=== PATIENT | male | born 1955 | race Caucasian/White ===

== ENCOUNTER 2019-03-25 15:40 | Emergency (ER) | payer MEDICAID, OTHER ==
[2019-03-25 15:58] VITALS: BP 130/66
[2019-03-25] MEDS ORDERED: oxyCODONE 5 MG TABLET PO STA (16:06)
--- NOTE | 2019-03-25 16:07 | ED Physician Documentation ---
PD HPI LOWER EXT INJURY - Stated complaint Stated Complaint: L ANKLE INJ - Chief complaint Chief Complaint: Ext Problem - History obtained from History obtained from: Patient - History of Present Illness PD HPI LOW EXT INJURY LOCATION: Left (Healthy 63-year-old gentleman fell a few feet onto dirt. Injured his left foot and ankle. He is unable to walk or bear weight. This happened around 2:00 today. No other injuries.) Review of Systems Constitutional: reports: Reviewed and negative Cardiac: reports: Reviewed and negative Respiratory: reports: Reviewed and negative PD PAST MEDICAL HISTORY - Present Medications Home Medications: Ambulatory Orders Medication Instructions Recorded Confirmed Knee Scooter 1 unit TD ONCE #1 03/25/19 Oxycodone HCl/Acetaminophen 1 - 2 each PO Q6H PRN #14 tablet 03/25/19 [Percocet 5-325 mg Tablet] - Allergies Allergies/Adverse Reactions: Allergies Allergy/AdvReac Type Severity Reaction Status Date / Time Penicillins Allergy Unknown Verified 03/25/19 15:58 PD ED PE NORMAL - Vitals Vital signs reviewed: Yes - General General: Alert and oriented X 3 - Neck Neck: Other (The totality of his cervical, lumbar, and thoracic spines were palpated without any tenderness.) - Extremities Extremities: Other (He is mildly tender over the calcaneus, more so over the lateral malleolus of the left ankle. No deformity. No other foot tenderness. No proximal fibular tenderness.) - Neuro Neuro: Alert and oriented X 3, Normal speech Results - Vitals Vitals: Vital Signs - 24 hr 03/25/19 15:51 Temperature 37 C Heart Rate 69 Respiratory 16 Rate Blood Pressure 130/66 O2 Saturation 98 Oxygen O2 Source Room air - Rads (name of study) L calcaneus and ankle XR Radiology: EMP read contemporaneously (Frx of the base of the calcaneal tuberosit with mild impaction.) Procedures - Splint (location) L leg Splint applied by: Physician Type of splint: Short leg, Other (bulky sorto) Other: Patient tolerated well, No complications, Neurovascular intact Departure - Departure Disposition: 01 Home, Self Care Clinical Impression: Left calcaneal fracture Condition: Good Record reviewed to determine appropriate education?: Yes Instructions: Calcaneus Fx Repair, ED Crutch Walking Follow-Up: [facility] [Provider Group] - Within 1 week Prescriptions: Knee Scooter 1 unit TD ONCE #1 Oxycodone HCl/Acetaminophen [Percocet 5-325 mg Tablet] 1 - 2 each PO Q6H PRN #14 tablet PRN Reason: pain Comments: Fortunately, the orthopedic surgeon does not feel like this particular fracture will need surgery. Do not remove the splint. Do not get it wet. Do not walk on it. Follow-up with the orthopedic clinic within the week, call them tomorrow for an appointment. Do not drink or drive with prescription pain medications. Discharge Date/Time: 03/25/19 17:02
--- NOTE | 2019-03-25 17:09 | XRAY Report ---
Reason: fall, LLE pain Procedure Date: 03/25/2019 Accession Number: [id number] / [id number] Procedure: XR - Ankle 3 View LT CPT Code: FULL RESULT: EXAM: LEFT ANKLE RADIOGRAPHY EXAM DATE: 03/25/2019 04:31 PM. CLINICAL HISTORY: Fall, LLE pain. COMPARISON: None. TECHNIQUE: 3 views. FINDINGS: Bones: Bohler' s angle is mildly decreased at 22 degrees. There is a transverse fracture through the mid to superior aspect of the calcaneus posterior to the posterior subtalar joint. No other fracture is identified. Medial and lateral malleoli are intact. Joints: Normal. No effusion. No subluxations. The ankle mortise is normally aligned. Soft Tissues: Mild soft tissue swelling over the heel fat pad. Mild soft tissue swelling over the anterior and lateral ankle. IMPRESSION: Minimally impacted transverse fracture through the base of the left calcaneal tuberosity. RADIA
--- NOTE | 2019-03-25 17:11 | XRAY Report ---
Reason: fall, LLE pain Procedure Date: 03/25/2019 Accession Number: [id number] / [id number] Procedure: XR - Calcaneus LT CPT Code: FULL RESULT: EXAM: LEFT CALCANEUS RADIOGRAPHY EXAM DATE: 03/25/2019 04:30 PM. CLINICAL HISTORY: Fall, LLE pain. COMPARISON: ANKLE 3 VIEW LT 03/25/2019 4:10 PM. TECHNIQUE: 2 views. FINDINGS: Bones: Bhler's angle is mildly decreased at about 23 degrees. There is a transverse fracture through the base of the calcaneal tuberosity just posterior to the posterior subtalar joint with mild impaction mid to superiorly. Joints: Normal. No subluxations. Soft Tissues: Normal. No soft tissue swelling. IMPRESSION: Fracture at the base of the left calcaneal tuberosity with mild impaction. RADIA
== END 2019-03-25 17:02 | disposition home or self-care (01) ==
LOC: ED 15:40
DX: S92.042A Displaced other fracture of tuberosity of left calcaneus, initial encounter for closed fracture (principal); W17.89XA Other fall from one level to another, initial encounter
CPT/HCPCS: 29515; 73610; 73650; 99283; 99284; A9270

== ENCOUNTER 2019-07-25 08:36 | Outpatient (CLI) | payer OTHER ==
--- NOTE | 2019-07-25 14:15 | Ultrasound Report ---
Reason: CHRONIC HEPATITIS Procedure Date: 07/25/2019 Accession Number: [id number] / [id number] Procedure: US - Abdomen Limited CPT Code: Final Report FULL RESULT: EXAM: ABDOMEN LIMITED EXAM DATE: 07/25/2019 09:13 AM INDICATION: Hepatitis C. COMPARISONS: NONE. TECHNIQUE: Real-time scanning was performed with static images obtained. FINDINGS: Liver: Liver parenchyma is heterogeneous and mildly hyperechoic. No cirrhosis. No discrete liver masses or intrahepatic bile duct dilation. However, evaluation for masses is limited secondary to the echogenicity. Right liver measures 15.9 cm. Main portal vein flow: Hepatopetal. Main portal vein measures 1.2 cm. Gallbladder: Probable sludge. No gallstones. Negative for sonographic Mcbride's sign. No gallbladder wall thickening or pericholecystic fluid. Biliary System: CBD measures 3 mm. No intrahepatic or extrahepatic ductal dilatation. Pancreas: Normal. Right kidney: 11.2 cm. No hydronephrosis. Abdominal aorta and IVC: Normal. Other: None. IMPRESSION: 1. No liver mass or intrahepatic dilation.No cirrhosis. Mildly echogenic liver with possible fatty infiltration. 2. Probable gallbladder sludge. No gallstones or sonographic findings concerning for acute cholecystitis. Normal common bile duct. 3. Normal pancreas. RADIA
== END 2019-07-25 08:37 | disposition home or self-care (01) ==
LOC: DI 08:36
PROVIDERS: ATTEND Nurse Practitioner Acute Care
DX: B19.20 Unspecified viral hepatitis C without hepatic coma (principal)
CPT/HCPCS: 76705

== ENCOUNTER 2020-10-22 08:10 | Outpatient (CLI) | payer OTHER ==
--- NOTE | 2020-10-22 10:10 | Ultrasound Report ---
PROCEDURE: Abdomen Limited INDICATIONS: Cirrhosis TECHNIQUE: Real-time focused scanning was performed of the abdomen, with image documentation. COMPARISON: 07/25/2019 12 abdominal ultrasound FINDINGS: Coarsened hepatic echotexture and increased hepatic parenchymal echogenicity, similar to t he prior study. There is subtle suggestion of possible contour nodularity. No focal hepatic mass or i ntrahepatic biliary ductal dilatation. Normal caliber common duct. The gallbladder and right kidney a re within normal limits. Visualized portions of the pancreas are normal. IMPRESSION: Findings which would be consistent with a clinical diagnosis of cirrhosis, although are not yet defin itive on the basis of the imaging appearance. No hepatic mass. Reviewed by: Kyle Lemon MD on 10/22/2020 10:09 AM PDT Approved by: Kyle Lemon MD on 10/22/2020 10:09 AM PDT Station ID: [id number]
== END 2020-10-22 08:11 | disposition home or self-care (01) ==
LOC: DI 08:10
PROVIDERS: ATTEND Nurse Practitioner Acute Care
DX: K74.69 Other cirrhosis of liver (principal); B19.20 Unspecified viral hepatitis C without hepatic coma

== ENCOUNTER 2022-08-24 06:50 | Outpatient (CLI) | payer MEDICARE ==
[2022-08-24 07:25] LABS: ALBUMIN 4.1 g/dL (3.2-5.5); ALBUMIN/GLOBULIN RATIO 1.4 (1.0-2.2); ALKALINE PHOSPHATASE 51 IU/L (42-121); ALT ALANINE AMINOTRANSFERASE 14 IU/L (10-60); AST ASPARTATE AMINOTRANSFERASE 16 IU/L (10-42); BASOPHILS % (AUTO) 0.6 %; BILIRUBIN,TOTAL 0.6 mg/dL (0.2-1.0); BUN - BLOOD UREA NITROGEN 16 mg/dL (6-20); CALCIUM 8.9 mg/dL (8.5-10.3); CARBON DIOXIDE - CO2 24 mmol/L (21-32); CHLORIDE 104 mmol/L (101-111); CHOL/HDL RATIO 5.4 (<5.0); CHOLESTEROL 205 mg/dL; CREATININE 0.8 mg/dL (0.6-1.2); EOSINOPHILS # (AUTO) 0.1 10^3/uL (0.0-0.7); EOSINOPHILS % (AUTO) 1.2 %; GFR - MDRD 97 (>89); GLUCOSE 113 mg/dL (70-100); HCT - HEMATOCRIT 36.6 % (42.0-52.0); HDL CHOLESTEROL 38 mg/dL; HGB - HEMOGLOBIN 12.1 g/dL (14.0-18.0); LYMPHOCYTES # (AUTO) 1.6 10^3/uL (1.5-3.5); LYMPHOCYTES % (AUTO) 32.9 %; MEAN CORPUSCULAR HEMOGLOBIN 30.9 pg (27.0-31.0); MEAN CORPUSCULAR HGB CONC 33.1 g/dL (32.0-36.0); MEAN CORPUSCULAR VOLUME 93.6 fL (80.0-94.0); MEAN PLATELET VOLUME 9.6 fL (7.4-11.4); MONOCYTES # (AUTO) 0.6 10^3/uL (0.0-1.0); MONOCYTES % (AUTO) 11.8 %; NEUTROPHILS # (AUTO) 2.6 10^3/uL (1.5-6.6); NEUTROPHILS % (AUTO) 53.1 %; PLT - PLATELET COUNT 272 10^3/uL (130-450); POTASSIUM 4.2 mmol/L (3.5-5.0); RED BLOOD COUNT 3.91 10^6/uL (4.70-6.10); RED CELL DISTRIBUTION WIDTH 12.9 % (12.0-15.0); SODIUM 138 mmol/L (135-145); TRIGLYCERIDES 38 mg/dL; WHITE BLOOD COUNT 4.9 x10^3/uL (4.8-10.8)
== END 2022-08-24 06:51 | disposition home or self-care (01) ==
LOC: LAB 06:50
PROVIDERS: ATTEND Nurse Practitioner
DX: Z00.00 Encounter for general adult medical examination without abnormal findings (principal); Z13.220 Encounter for screening for lipoid disorders; Z12.5 Encounter for screening for malignant neoplasm of prostate
CPT/HCPCS: 36415; 80053; 80061; 85025; G0103; 83721; 84153

== ENCOUNTER 2022-08-26 08:00 | Outpatient (CLI) | payer MEDICARE ==
[2022-08-26 12:29] LABS: FECAL OCCULT BLOOD (FIT) NEGATIVE (NEGATIVE)
== END 2022-08-26 23:59 | disposition home or self-care (01) ==
LOC: LAB.R 08:00
PROVIDERS: ATTEND Family Medicine
DX: D64.9 Anemia, unspecified (principal)
CPT/HCPCS: 82274